=== PATIENT | male | born 1995 ===

== ENCOUNTER 2023-08-12 12:50 | Outpatient (CLI) | payer OTHER, SELFPAY ==
--- NOTE | ~2023-08-12 | XR_ITS ---
EXAMINATION: XR cervical spine 4-5V DATE: 08/12/2023 14:08 INDICATION: Chronic bilateral thoracic back pain. TECHNIQUE: 5 views of cervical spine were obtained. COMPARISON: None. FINDINGS: There is 8 degrees dextrocurvature of cervicothoracic spine. Vertebral body heights and int ervertebral disc heights are normal. The facet joints are normal. No central canal stenosis or prever tebral soft tissue swelling. IMPRESSION: 1. No etiology for the patient's symptoms. Reviewed, dictated and finalized at location E. RAISER
--- NOTE | ~2023-08-12 | XR_ITS ---
EXAMINATION: XR lumbar spine min 4V DATE: 08/12/2023 14:08 INDICATION: Chronic bilateral thoracic back pain. Right-sided low back pain. TECHNIQUE: 5 views of lumbar spine standing were obtained. COMPARISON: None. FINDINGS: There is 17 degrees dextroscoliosis of lumbar spine. Vertebral body heights are normal. Int ervertebral disc heights are normal. IMPRESSION: 1. Lumbar dextroscoliosis. Reviewed, dictated and finalized at location E. [employer] IMPRESSION: 1. Lumbar dextroscoliosis.
--- NOTE | ~2023-08-12 | XR_ITS ---
EXAMINATION: XR thoracic spine 3V DATE: 08/12/2023 14:08 INDICATION: Chronic bilateral thoracic back pain. TECHNIQUE: 3 views of thoracic spine were obtained. COMPARISON: None. FINDINGS: There is 9 degrees levocurvature of thoracic spine. Vertebral body heights are normal. Ther e is mildly decreased disc height at T9-T10. There are endplate osteophytes at multiple levels. IMPRESSION: 1. Mild thoracic spondylosis. Reviewed, dictated and finalized at location E. UM ROOFER
== END 2023-08-12 12:51 ==
DX: M47.894 Other spondylosis, thoracic region (principal)
CPT/HCPCS: 72050; 72072; 72110